=== PATIENT | female | born 1975 ===

== ENCOUNTER 2018-02-20 18:30 | Emergency (ER) | payer BC ==
[2018-02-20 19:01] VITALS: BMI 30.4
[2018-02-20] MEDS ORDERED: Promethazine/Cod 6.25mg-10mg/5ml Syr UD PO STA (19:25)
[2018-02-20] MEDS ORDERED: Albuterol 0.083% Inhal Sol (2.5 mg/3 mL) UD INH STA (19:25)
--- NOTE | 2018-02-20 19:35 | ED PDOC ---
History of Present Illness History of Present Illness: 42 y/o female with a PMHx of Asthma presents to the ED for evaluation of fever associated with dry cough, myalgia and malaise, onset 6 days ago. Patient reports of being evaluated by her PMD and diagnosed with a flu. Patient states she was not given Tamiflu. Patient reports fever and cough returned yesterday, thus prompting today's visit. Patient additionally reports of wheezing thus prompting her to use her albuterol pump with no relief. Patient states albuterol pump may be old. PMD: Jessica Hawk HPI: Influenza Time Seen by Provider: 02/20/18 19:19 Chief Complaint: Cough, Cold, Congestion Chief Complaint (Provider): Cough, Cold, Congestion History Per: Patient Exam Limitations: no limitations Onset/Duration Of Symptoms: Days Symptoms include: fever, bodyaches, cough Past Medical History Reviewed: Historical Data Vital Signs: Last Vital Signs Temp 98.4 F 02/20/18 19:03 Pulse 114 H 02/20/18 19:03 Resp 16 02/20/18 19:03 BP 157/93 H 02/20/18 19:03 Pulse Ox 97 02/20/18 19:03 - Medical History PMH: Asthma - Surgical History Surgical History: (x2) - Family History Family History: States: Unknown Family Hx - Home Medications Home Medications: Ambulatory Orders Medication Instructions Recorded Dicyclomine [Bentyl] 10 mg PO QID PRN #20 cap 10/20/17 Ondansetron [Zofran Odt] 4 mg PO ASDIR PRN #12 odt 10/20/17 RX: Albuterol HFA [Ventolin HFA 90 2 puff IH [id number] #1 inh 02/20/18 mcg/actuation (8 g)] RX: Azithromycin [Z-Salvatore] 250 mg PO ASDIR #6 tab 02/20/18 - Allergies Allergies/Adverse Reactions: Allergies Allergy/AdvReac Type Severity Reaction Status Date / Time No Known Allergies Allergy Verified 02/20/18 19:01 Review of Systems ROS Statement: Except As Marked, All Systems Reviewed And Found Negative Constitutional: Positive for: Fever, Malaise, Other (myalgia) Respiratory: Positive for: Cough, Wheezing Physical Exam - Reviewed Nursing Documentation Reviewed: Yes Vital Signs Reviewed: Yes - Physical Exam Appears: Positive for: No Acute Distress Head Exam: Positive for: ATRAUMATIC, NORMOCEPHALIC Skin: Positive for: Normal Color, Warm, Dry Eye Exam: Positive for: Normal appearance, EOMI, PERRL ENT: Positive for: Normal ENT Inspection Neck: Positive for: Normal, Painless ROM, Supple Cardiovascular/Chest: Positive for: Regular Rate, Rhythm. Negative for: Murmur Respiratory: Positive for: Normal Breath Sounds. Negative for: Respiratory Distress Gastrointestinal/Abdominal: Positive for: Normal Exam, Soft. Negative for: Tenderness Back: Positive for: Normal Inspection. Negative for: L CVA Tenderness, R CVA Tenderness, Vertebral Tenderness Extremity: Positive for: Normal ROM. Negative for: Pedal Edema, Deformity Neurologic/Psych: Positive for: Alert, Oriented. Negative for: Motor/Sensory Deficits Medical Decision Making Medical Decision Making: Time: 1925 Impression: Fever and Cough Differentials include but not limited to acute bronchitis, pneumonia and influenza Plan: -- CXR Two Views -- Albuterol 0.083% 2.5 mg INH -- Promethazine/Codeine 5 ml PO -- Peak Flow Pre/Post Tx -- Influenza A B Scribe Attestation: Documented by Vesna Nicholas, acting as a scribe for Andrés Chao MD. Provider Scribe Attestation: All medical record entries made by the Scribe were at my direction and personally dictated by me. I have reviewed the chart and agree that the record accurately reflects my personal performance of the history, physical exam, medical decision making, and the department course for this patient. I have also personally directed, reviewed, and agree with the discharge instructions and disposition. - ECG O2 Sat by Pulse Oximetry: 97 - Radiology X-Ray: Interpreted by Me, Viewed By Me X-Ray Interpretation: No Acute Disease - Progress Re-evaluation Time: 22:29 Condition: Re-examined, Improved Disposition - Clinical Impression Clinical Impression: Bronchitis - Patient ED Disposition Is Patient to be Admitted: No Doctor Will See Patient In The: Office Counseled Patient/Family Regarding: Studies Performed, Diagnosis, Need For Followup - Disposition Referrals: Sarath Hawk MD [Staff Provider] - Disposition: Routine/Home Disposition Time: 22:31 Condition: GOOD Additional Instructions: PEPE BOB, thank you for letting us take care of you today. Your provider was Andrés Chao MD and you were treated for COUGH, FEVER. The emergency medical care you received today was directed at your acute symptoms. If you were prescribed any medication, please fill it and take as directed. It may take several days for your symptoms to resolve. Return to the Emergency Department if your symptoms worsen, do not improve, or if you have any other problems. Please contact your doctor or call one of the physicians/clinics you have been referred to that are listed on the Patient Visit Information form that is included in your discharge packet. Bring any paperwork you were given at discharge with you along with any medications you are taking to your follow up visit. Our treatment cannot replace ongoing medical care by a primary care provider outside of the emergency department. Thank you for allowing the [facility] team to be part of your care today. If you had an X-Ray or CT scan: A Radiologist will review the ED reading if any change in treatment is needed we will contact you. If you had a blood, urine, or wound culture: It will take several days for the results, if any change in treatment is needed we will contact you. If you had an STI test: It will take 48 hours for the results. Please call after 1 week if you have not heard back. Prescriptions: RX: Albuterol HFA [Ventolin HFA 90 mcg/actuation (8 g)] 2 puff IH [id number] #1 inh RX: Azithromycin [Z-Salvatore] 250 mg PO ASDIR #6 tab Instructions: Acute Bronchitis Forms: [employer] (French), [facility] ED School/Work Excuse Print Language: PALESTINIAN
[2018-02-20] MEDS ORDERED: Albuterol 0.083% Inhal Sol (2.5 mg/3 mL) UD ONE (19:45)
[2018-02-20] MEDS ORDERED: Promethazine/Cod 6.25mg-10mg/5ml Syr UD ONE (19:45)
[2018-02-20 22:40] VITALS: BP 140/75; PULSE 77; RESP 22; TEMP 98.2
--- NOTE | 2018-02-21 09:06 | RAD ---
Date of service: 02/20/2018 HISTORY: fever cough COMPARISON: No prior. TECHNIQUE: Chest PA and lateral FINDINGS: LUNGS: No active pulmonary disease. PLEURA: No significant pleural effusion identified. No pneumothorax apparent. CARDIOVASCULAR: No aortic atherosclerotic calcification present. Normal cardiac size. No pulmonary vascular congestion. OSSEOUS STRUCTURES: There is trace S shaped scoliotic curvature probably present VISUALIZED UPPER ABDOMEN: Normal. OTHER FINDINGS: None. IMPRESSION: No acute cardiopulmonary pathology. Specifically no pulmonary infiltrate noted. Other findings as above.
[2018-02-21 23:38] VITALS: O2SAT 97
== END 2018-02-20 22:47 | disposition home or self-care (01) ==
LOC: H.ER 18:30
DX: J20.9 Acute bronchitis, unspecified (principal)